=== PATIENT | male | born 1980 | race Caucasian/White ===

== ENCOUNTER 2023-09-13 08:24 | Outpatient (REF) | payer BC, SELFPAY ==
--- NOTE | ~2023-09-13 | XR_ITS ---
EXAMINATION: XR KNEE STANDING, BILATERAL XR KNEE, LEFT CLINICAL INFORMATION: Pain in left knee. TECHNIQUE: AP standing view of bilateral knees. [place] and lateral views of the left knee. FINDINGS: Minimal degenerative changes with tiny posterior patellar osteophytes and minimal medial joint space narrowing left knee. Tiny, punctate calcific/ossific density overlies the medial aspect of the medial femoral condyle. No significant left joint effusion. AP view of the right knee demonstrates preserved medial and lateral joint spaces. XR/XR knee LT 2V IMPRESSION: Minimal degenerative changes in the left knee.
--- NOTE | ~2023-09-13 | XR_ITS ---
EXAMINATION: XR KNEE STANDING, BILATERAL XR KNEE, LEFT CLINICAL INFORMATION: Pain in left knee. TECHNIQUE: AP standing view of bilateral knees. [place] and lateral views of the left knee. FINDINGS: Minimal degenerative changes with tiny posterior patellar osteophytes and minimal medial joint space narrowing left knee. Tiny, punctate calcific/ossific density overlies the medial aspect of the medial femoral condyle. No significant left joint effusion. AP view of the right knee demonstrates preserved medial and lateral joint spaces. XR/XR knee standing BI IMPRESSION: Minimal degenerative changes in the left knee.
== END 2023-09-13 08:25 | disposition home or self-care (01) ==
LOC: HO.HOSX 08:24
PROVIDERS: Visit Provider Physician Assistant
DX: M23.92 Unspecified internal derangement of left knee (principal); M25.561 Pain in right knee
CPT/HCPCS: 73560; 73565

== ENCOUNTER 2023-09-13 09:02 | Outpatient (AMB) | payer BC, SELFPAY ==
--- NOTE | 2023-09-13 09:15 | A.OFFVIS_ITS ---
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 Patient reports while at [employer] jumping over [employer]yman he landed sideways and felt pain instantly. He found relief with icing, bracing, and Advil however he continues to have clicking with stair use and clunking with walking as well as soreness at the lateral aspect of knee. He feels his knee is unstable as if it will give out. 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 He states this occurred as he was jumping over hyman and landed awkwardly. He states he has soreness at the lateral aspect of his knee and c/o clicking of his knee with walking and stair use. He also experiences instability and his knee giving out with turning back while cooking. He finds relief with icing, bracing and Advil. He is wearing knee pads while at work with benefits. 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 Review of Systems Const All systems reviewed & are unremarkable except as noted in HPI and below Physical Exam Vital Signs: BMI result Body Mass Index 35.0 Const General: cooperative, healthy appearing, comfortable, no acute distress, well developed and alert Orientation/consciousness: patient oriented x3 HEENT Head: Yes normal to inspection, Yes normocephalic and Yes atraumatic Eyes General: appearance normal, both eyes and all related structures Neck Neck: Yes normal visual inspection and Yes no lymphadenopathy Resp Effort & Inspection: normal respiratory effort and able to speak in complete sentences Cardio Rate: regular rate Peripheral pulses: Peripheral pulses 2+ throughout GI Inspection: Yes normal to inspection Palpation (GI): Soft to palpation Skin General skin exam: no rashes or lesions noted Neuro General: patient oriented x3 Extrem Other: Left knee: Skin intact, no erythema or joint effusion. Tenderness along the lateral joint line. Full ROM with crepitus. Negative Mercedes?s. No ligamentous laxity. NVI. He has ligamentous laxity left when compared to the contralateral side. Results Reviewed Results Reviewed: Xrays were obtained in the office today and personally reviewed by me of the left knee are negative for acute fracture or dislocation. Assessment & Plan Assessment & Plan (1) Internal derangement of left knee: Code(s): M23.92 - Unspecified internal derangement of left knee Plan An CT scan of left knee has been obtained to further evaluate the structures of the knee given his mechanism of injury and ongoing instability. He was also fit for an off the shelf playmaker knee brace and see back once scan complete. He cannot have an MRI due to a magnet implant in his brain. Orders: Orders XR knee standing BI Today M25.561 - Pain in right knee, M25.562 - Pain in left knee XR knee LT 2V Today M25.562 - Pain in left knee CT knee LT wo IV con Today M23.92 - Unspecified internal derangement of left knee Patient Instructions: Scribed for Stuart Boswell PA-C, by Nader Andrews curator medical museum, on 09/13/2023. IStuart PA-C, have personally reviewed and agree with the information entered by the scribe. Coding Level of Care Code New Pt Level 3 (38849) Diagnoses Internal derangement of left knee M23.92
[2023-09-13 09:19] VITALS: BMI 35.0
== END 2023-09-13 09:55 | disposition home or self-care (01) ==
PROVIDERS: PCP Nurse Practitioner Family; Visit Provider Physician Assistant
DX: M23.92 Unspecified internal derangement of left knee (principal)
CPT/HCPCS: 99203

== ENCOUNTER 2023-10-08 07:29 | Outpatient (REF) | payer BC, SELFPAY ==
--- NOTE | ~2023-10-08 | CT_ITS ---
EXAMINATION: CT KNEE WITHOUT CONTRAST, LEFT CLINICAL INFORMATION: Left knee pain. Unable to MRI. COMPARISON: Radiographs 09/13/2023 TECHNIQUE: A noncontrast CT of the left knee is performed with sagittal and coronal reformats. This CT examination was performed using dose optimization techniques as appropriate, variously including the following: *Automated exposure control *Adjustment of mA and/or kV according to patient size (this includes techniques or standardized protocols for targeted exams where dose is matched to indication/reason for exam; i.e. extremities or head) *Use of iterative reconstruction technique Dose Length Product: 115 mGycm. FINDINGS: No fracture. No suspicious bone lesion. No joint space narrowing or significant degenerative findings. No joint effusion. Trace George's cyst. Evaluation of the ligaments is limited with CT. No obvious tear. Cannot assess the menisci without intra-articular contrast. CT/CT knee LT wo IV con IMPRESSION: No acute osseous abnormality. Trace George's cyst.
== END 2023-10-08 07:30 | disposition home or self-care (01) ==
LOC: HO.CT 07:29
PROVIDERS: PCP Nurse Practitioner Family; Visit Provider Physician Assistant
DX: M23.92 Unspecified internal derangement of left knee (principal)
CPT/HCPCS: 73700